=== PATIENT | female | born 1995 | race Hispanic/Latino ===

== ENCOUNTER 2018-12-26 03:27 | Emergency (ER) | payer OTHER ==
[2018-12-26] MEDS ORDERED: TETANUS/DIPHTHERIA TOXOID [ADULT] 0.5 ML VIAL IM ONE (03:53)
[2018-12-26] MEDS ORDERED: LIDOCAINE HCL MPF 1% 5ML VIAL ONE (04:01)
[2018-12-26] MEDS ORDERED: OCTYL 2-CYANOACRYLATE 1 EACH TP ONE (04:20)
== END 2018-12-26 04:42 | disposition home or self-care (01) ==
LOC: EDH 03:27
DX: S61.217A Laceration without foreign body of left little finger without damage to nail, initial encounter (principal); X58.XXXA Exposure to other specified factors, initial encounter; Y93.02 Activity, running; Y92.89 Other specified places as the place of occurrence of the external cause; Y99.8 Other external cause status
CPT/HCPCS: 12041; 90471; 90714; 99284; J3490